=== PATIENT | female | born 1995 | race African-American/Black ===

== ENCOUNTER → 2016-10-01 | Outpatient (CLI) | payer BC, OTHER ==
--- NOTE | 2016-10-01 15:07 | RADRPT ---
EXAM DATE/TIME: 10/01/2016 09:40 [place] COMPARISON: No previous studies available for comparison. INDICATIONS : Abdominal pain. FLUORO TIME: 3.3 minutes IMAGE COUNT: 26 CONTRAST: Liquid E-Z Paque Barium Sulfate (60% w/v, 41% w/w) IMAGING TIME(S): 45 min, 1 hr, 1.5 hrs, 2 hrs, 3 hr, 3 hrs4 hr MEDICAL HISTORY : cerebral palsy SURGICAL HISTORY : colostomy ENCOUNTER: Initial ACUITY: 1 day PAIN SCORE: Non-responsive. LOCATION: Bilateral abdomen FINDINGS: Limited film demonstrates moderate severity left lumbar scoliosis. Barium contrast was placed via th e gastrostomy tube under gravity delivery. The stomach and duodenum was normal in configuration. Th ere is slow emptying of the barium from the stomach. Mucosal pattern of the jejunum and ileum was no rmal. Contrast is present in the right lower quadrant near the stoma by 4 hours. The jejunal loops are normal in dimension with normal mucosal pattern. The ileal loops are dilated up to 6.4 cm. CONCLUSION: Slow passage of contrast to the stoma. No evidence of obstruction. Normal mucosal pattern and jejun um and diffusely dilated loops of ileum suggesting ileus Julius Morales MD on October 01, 2016 at 15:03 Board Certified Radiologist. This report was verified electronically.
== END ==
LOC: HRAD 08:58
DX: R10.9 Unspecified abdominal pain (principal)
CPT/HCPCS: 74245